=== PATIENT | male | born 1990 | race Caucasian/White ===

== ENCOUNTER → 2020-06-22 | Outpatient (CLI) | payer OTHER | LOC: KOH-I 11:04 | DX: R07.1 Chest pain on breathing (principal) | CPT/HCPCS: 71046 ==

== ENCOUNTER → 2020-10-08 | Outpatient (CLI) | payer OTHER | LOC: KOH-I 10-04 16:46 | DX: M54.2 Cervicalgia (principal); M54.6 Pain in thoracic spine; M47.812 Spondylosis without myelopathy or radiculopathy, cervical region; G95.89 Other specified diseases of spinal cord | CPT/HCPCS: 72040; 72070 ==